=== PATIENT | male | born 1970 | race Caucasian/White ===

== ENCOUNTER 2017-03-07 08:00 | Emergency (ER) | payer OTHER ==
[~2017-03-07] VITALS: Ht 185.4 cm; Wt 92.3 kg
[~2017-03-07 08:00] MED LIST: ADVAIR HFA120 INHALA IH; ADVIL200 MG PO; ALLOPURINOL100 MG PO; ALTOPREV40 MG PO; AMLODIPINE BESY10 MG PO; AMOX TR-K CLV1 EAC4 PO; ASPIR-LOW81 MG PO; ASPIRIN EC325 MG PO; ASPIRIN325 MG PO; ATORVASTATIN CA80 MG PO; COLCRYS0.6 MG PO; COZAAR50 MG PO; CYCLOBENZAPRINE5 MG PO; EFFIENT10 MG PO; FAMOTIDINE20 MG PO; FERROUS SULFAT325 MG PO; GUAIFENESIN WI120 M1 PO; HYDROCHLOROTHIA25 MG PO; LIDOCAINE700 MG TD; LISINOPRIL40 MG PO; LITE COAT ASPI325 M1 PO; LOPRESSOR50 MG PO; NICOTINE PATCH1 EAC1 TD; NO MEDS; NOHOMEMEDS; NORVASC10 MG PO; NYSTATIN15 GM TP; PEPCID20 MG PO; PERCOCET 5/31 TABLET PO; PLAVIX75 MG PO; PREDNISONE10 MG PO; SPIRIVA RESPIMAT4 GM IH; SPIRIVA1 INHALATI IH; SPIRONOLACTONE25 MG PO; VALIUM10 MG PO; VENTOLIN HFA18 GM IH; ZANTAC75 M1 PO
[2017-03-07 08:34] LABS: BASOPHIL COUNT 0.1 K/uL (0-0.1); EOSINOPHIL (%) 1.3 % (0-5); EOSINOPHIL COUNT 0.3 K/uL (0-0.3); HEMATOCRIT 46.4 % (38.0-50.0); IMMATURE GRANULOCYTE (%) 0.5 % (0.0-0.7); IMMATURE GRANULOCYTE COUNT 0.1 K/uL; INSTRUMENT ABS NEUTROPHIL CT 17.2 K/uL; LYMPHOCYTE COUNT 0.4 K/uL (1.0-2.8); MCH 29.1 PG (29.0-34.0); MCV 88.2 FL (86-99); MEAN PLAT.VOLUME 10.9 uM^3 (9.0-12.4); MONOCYTE (%) 5.2 % (3-12); NEUTROPHIL (%) 90.4 % (45-76); NEUTROPHIL COUNT 17.2 K/uL (1.8-6.4); PLATELET COUNT 220 K/uL (156-360); RBC DIS.WIDTH-CV 13.2 % (11.8-14.6); RBC DIS.WIDTH-SD 42.9 % (39-53); RED BLOOD COUNT 5.26 M/uL (4.00-5.50); WHITE BLOOD COUNT 19.1 K/uL (4.1-10.2)
[2017-03-07 08:47] LABS: CHLORIDE 109 mEq/L (99-109); POTASSIUM 3.8 mEq/L (3.7-5.4); SODIUM 138 mEq/L (136-147)
[2017-03-07 08:49] LABS: GLUCOSE 141 mg/dL (70-99)
[2017-03-07 08:50] LABS: ANION GAP 8 MEQ/L (2-14)
[2017-03-07 08:53] LABS: GFR ESTIMATE (CALCULATED) > 59 mL/min/
[2017-03-07 08:54] LABS: UREA NITROGEN (BUN) 12 mg/dL (9-23)
[2017-03-07] MEDS ORDERED: ZOFRAN4 MG PO (11:52)
[2017-03-07] MEDS ORDERED: BENTYL20 MG PO (11:52)
[2017-03-07] MEDS ORDERED: IMODIUM A-D2 M2 PO (11:52)
[2017-03-07 12:06] VITALS: BP 102/60
== END 2017-03-07 12:47 | disposition home or self-care (01) ==
LOC: EME → EDBD 08:00 → EME 08:00
PROVIDERS: Emergency Medicine
DX: R10.9 Unspecified abdominal pain (principal); R11.2 Nausea with vomiting, unspecified; R19.7 Diarrhea, unspecified; D72.829 Elevated white blood cell count, unspecified; Z87.442 Personal history of urinary calculi; I10 Essential (primary) hypertension; E78.5 Hyperlipidemia, unspecified; J44.9 Chronic obstructive pulmonary disease, unspecified; Z95.5 Presence of coronary angioplasty implant and graft; Z79.82 Long term (current) use of aspirin; F17.200 Nicotine dependence, unspecified, uncomplicated
CPT/HCPCS: 80048; 85025; 87493; 99281; 99285; J1885; J2405; J7030